=== PATIENT | female | born 1995 | race Caucasian/White ===

== ENCOUNTER 2025-02-07 15:11 | Outpatient (AMB) | payer OTHER, SELFPAY ==
--- NOTE | 2025-02-07 15:17 | MHC.PC.OV ---
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 She has not seen a doctor in many years. She reports concerns of fatigue and hair loss. She reports feeling consistently exhausted and has noticed increased hair shedding for about a year, with the fatigue becoming extreme in the last six months. Reports regular menstrual periods but describes them as very heavy, with heavy bleeding lasting four to five days followed by spotting. Denies constipation, diarrhea, heat or cold intolerance, anxiety or depression, or abnormal weight changes. Denies chest pain, palpitations or shortness of breath. She has no known medical conditions, takes no medications or supplements, and has had no prior surgeries. Her family history is significant for uterine and cervical cancer in her mother, breast cancer in both grandmothers, and skin cancer on her father's side. There is no known family history of hypertension, diabetes, or high cholesterol. 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 Denies smoking or recreational drug use. She consumes alcohol couple times a months about couple drinks per occasion. Declines flu vaccine today. [facility] Social History (System 05/10/24 @ 14:34 by Katey Anderson) Housing: Apartment Patient Tobacco Use Status: Never used Tobacco e-Cigarette/Vaping Use: Never Used service: No Current occupational status: employed Current occupation: [employer] Hearing needs: No Vision needs: Yes (glasses) Questionnaire PHQ-9 Over the last 2 weeks, how often have you been bothered by any of the following problems? 1. Little interest or pleasure in doing things: not at all 2. Feeling down, depressed, or hopeless: several days 3. Trouble falling or staying asleep, or sleeping too much: several days 4. Feeling tired or having little energy: nearly every day 5. Poor appetite or overeating: not at all 6. Feeling bad about yourself - or that you are a failure or have let yourself or your family down: not at all 7. Trouble concentrating on things, such as reading the newspaper or watching television: several days 8. Moving or speaking so slowly that other people could have noticed. Or the opposite - being so fidgety or restless that you have been moving around a lot more than usual: not at all 9. Thoughts that you would be better off or of hurting yourself in some way: not at all Total score: 6 Depression Screening Interpretation: Positive Depression Screening Done: Yes Source: Developed by Drs. Rodrigo Ryan, Frida George, Marcelino Adan and colleagues, with an educational tennille from [employer] Thrive Questionnaire Date Thrive assessed: 02/07/25 I am a: Patient What is your living situation today?: I have a steady place to live Within the past 12 months, did the food you bought not last and you didn't have the money to get more?: Never true Within the past 12 months, did you worry whether your food would run out before you got money to buy more?: Never true Do you have trouble paying for medicines?: No Do you have trouble getting transportation to medical appointments?: No Do you have trouble paying your heating and electricity bill?: No Do you have trouble taking care of your child, family member or friend?: No Do you have trouble with day-to-day activities such as bathing, preparing meals, shopping, managing finances, etc.?: No Are you currently unemployed and looking for a job?: No Are you interested in more education?: Yes Please select the resources that you would like help with: None Currently or been in a relationship where the following occur: No concerns reported THRIVE Score: 0 AUDIT C Alcohol Use Questionnaire (AUDIT-C) 1. How often do you have a drink containing alcohol?: 2-4 times a month 2. How many drinks containing alcohol do you have on a typical day when you are drinking?: 1 or 2 3. How often do you have six or more drinks on one occasion?: Less than monthly Total Score: 3 CRISTI-7 AMB Questionnaire CRISTI-7 Date CRISTI - 7 assessed: 02/07/25 Feeling nervous, anxious, or on edge: 1 = Several days Not being able to stop or control worryin = Not at all Worrying too much about different things: 0 = Not at all Trouble relaxin = Nearly every day Being so restless that it is hard to sit still: 3 = Nearly every day Becoming easily annoyed or irritable: 1 = Several days Feeling afraid as if something awful might happen: 0 = Not at all Total CRISTI-7 score (0-4 normal; 5-9 mild; 10-14 moderate; 15-21 severe): 8 Source: Developed by Drs. Rodrigo Ryan, Frida George, Marcelino Adan and colleagues, with an educational tennille from [employer] Physical exam (Primary Care) Vital Signs: Last Vital Signs Temp 97.7 F 02/07/25 15:20 Pulse 65 02/07/25 15:20 Resp 16 02/07/25 15:20 BP 96/60 02/07/25 15:20 General: Well-appearing, alert, oriented ?3, in no acute distress. Cardiovascular: RRR, S1-S2 appreciated, no murmurs, rubs or gallops. Respiratory: Lungs clear to auscultation bilaterally, no wheezes, rales or rhonchi. Abdomen: Soft, nontender, nondistended. Normoactive bowel sounds. No lower extremity edema. BMI result Body Mass Index 21.9 Tobacco/Smoking Status: Tobacco use Status Tobacco use date assessed 02/07/25 02/07/25 15:26 Patient Tobacco Use Status Never used Tobacco 02/07/25 15:26 e-Cigarette/Vaping Use Never Used 02/07/25 15:26 PHQ-9: PHQ-9 Score PHQ-9: Total score 6 02/07/25 15:26 Depression Screening Interpretation: Positive Thrive Assessment: Date of Thrive Assessment Date Thrive assessed 02/07/25 02/07/25 15:26 Currently or been in a relationship where the following occur: No concerns reported Coding Level of Care Code New Pt Level 4 (59003) Diagnoses Establishing care with new doctor, encounter for Z76.89 Fatigue, unspecified type R53.83 Fatigue type: unspecified Non-scarring hair loss L65.9 Influenza vaccination declined Z28.21 Assessment & Plan Assessment & Plan (1) Establishing care with new doctor, encounter for: Code(s): Z76.89 - Persons encountering health services in other specified circumstances Plan: Patient is a 29-year-old female presenting to establish care. Has not seen a doctor in many years. (2) Fatigue: Code(s): R53.83 - Other fatigue Category: Medical Qualifiers: Fatigue type: unspecified Qualified Code(s): R53.83 - Other fatigue Plan: Patient reports fatigue and progressively worsening hair loss for the past year, worsened over the past 6 months. Reports regular but heavy flow periods for 4-5 days each month. Workup with obtaining CBC, CMP, iron panel, TSH and vitamin-D levels. (3) Non-scarring hair loss: Code(s): L65.9 - Nonscarring hair loss, unspecified Plan: Physical exam notable for diffuse thinning of hair without scars. Obtain blood work as above to evaluate. (4) Influenza vaccination declined: Code(s): Z28.21 - Immunization not carried out because of patient refusal Category: Medical Plan: Declines flu vaccine today. Orders: Orders Complete Blood Count Auto Diff Today Z00.00 - Encounter for general adult medical examination without abnormal findings Comprehensive Met. Panel Today Z00.00 - Encounter for general adult medical examination without abnormal findings Magnesium Today R53.83 - Other fatigue TSH reflex Free T4 Today R53.83 - Other fatigue Lipid Panel with Reflex Today Z13.220 - Encounter for screening for lipoid disorders IRON PROFILE Today R53.83 - Other fatigue Vitamin D 25-OH (D2 and D3) Today R53.83 - Other fatigue Hemoglobin A1c Today Z13.1 - Encounter for screening for diabetes mellitus Vitamin B12 and Folate Today R53.83 - Other fatigue
[2025-02-07 15:20] VITALS: BP 96/60; PULSE 65; RESP 16; TEMP 36.5; BMI 21.9
--- OUTSIDE RECORDS SUMMARY | 2025-02-07 20:13 | XMS_ITS | Encounter Summary ---
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 Maker Machine Name Role Phone Melvi Case MD Primary Care Provider [phone] Encounter Details Date Type Department Care Team (Late st Contact Info) Description 10/08/2016 Conversion Encounter [facility] [place] [address] [place] [address] Social History Tobacco Use Types Packs/Day Years Used Date Smoking Tobacco: Never Assessed Comments Unknown Sex and Gender Information Value Date Recorded Sex Assigned at Not on file Legal Sex Female 4:36 PM EDT Gender Identity Not on file Sexual Orientation Not on file documented as of this encounter Plan of Treatment Not on file documented as of this encounter Visit Diagnoses Not on filedocumented in this encounter Care Teams Slat Basket Maker Machine Relationship Specialty Start Date End Date Melvi Case MD [address] [place] [address] PCP - General 10/02/16 04/22/22 documented as of this encounter
--- OUTSIDE RECORDS SUMMARY | 2025-02-07 20:13 | XMS_ITS | Clinical Summary ---
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 Name Role Phone Unavailable Primary Care Provider Unavailabl e Immunizations Immunization Administration Dates Next Due DTP 01/20/1995, 5,01/13/1994,11/13 DTaP 5 09/04/1998 HPV, Quadrivalent 02/14/2008,10/17/2007,08/15/19 08 Hep B, ped/adol 05/20/1994,1993,1993 Hib (PRP-T) 11/17/1994, 5,01/13/1994,11/13 Influenza, injectable, trivalent 11/08/2008,02/22 Influenza, intranasal, trivalent 11/13/2009 MMR 11/13/1997,11/17/1994 Meningococcal Conj (Menactra) MCV4P 03/04/2006 OPV 09/04/1998, 5,01/13/1994,11/13 Td (adult) (MBL), 2 Lf tetan us toxoid, PF, adsorbed 09/03/2004 Tdap 08/15/2007 Family History Relation Name Status Comments Brother Alive Brother: Alive and well Father Alive Father: Alive a nd well Maternal Grandfather Alive Materna l grandfather: Stroke Mother Alive Mother: Cancer, cervical / Asthma Other Family history of Elevated cholesterol, Family history of Diabetes mellitus, Family history of Strabismus/amblyopia, Family history of Asthma Paternal Grandfather Paterna l grandfather: Diabetes mellitus, Stroke, Social History Tobacco Use Types Packs/Day Years Used Date Smoking Tobacco: Never Assessed Comments Unknown Sex and Gender Information Value Date Recorded Sex Assigned at Not on file Legal Sex Female 4:36 PM EDT Gender Identity Not on file Sexual Orientation Not on file Last Filed Vital Signs Vital Sign Reading Time Taken Comments Blood Pressure 102/64 11/13/2009 12:00 AM EDT Pulse - - Temperature - - Respiratory Rate - - Oxygen Saturation - - Inhaled Oxygen Concentration - - Weight 52.6 kg (116 lb) 11/13/2009 12:00 AM EDT Height 169.7 cm (5' 6.81 ) 11/13/2009 12:00 AM E DT Body Mass Index 18.27 11/13/2009 12:00 AM EDT Plan of Treatment Health Maintenance Due Date Last Done Comments Varicella Vaccines (1 of 2 - 13+ 2-dose series) 12/11/2009 DTaP,Tdap,and Td Vaccines (7 - Td or Tdap) 2017 08/15/2007, 09/03/2004, 09/04/1998, Additional history exists Influenza Vaccines (#1) 2024 11/14/19, 11/08/2008, 03/04/2006 COVID-19 Vaccine (2024- season) 2024 Hepatitis B Vaccines Completed 05/20/1994, 1993, 1993 HIB Vaccines Completed 11/17/1994, 02/23, 01/13/1994, Additional history exists MMR Vaccines Completed 11/13/1997, 11/17/1994 IPV Vaccines Completed 09/04/1998, 02/23, 01/13/1994, Additional history exists Meningococcal Vaccine Aged Out 03/04/2006 No sandra jazmine eligible based on patient's age to complete this topic HPV Vaccines Completed 02/14/2008, 09/23, 08/15/2007 Hepatitis A Vaccines Aged Out No long er eligible based on patient's age to complete this topic Men B Vaccine Aged Out No longer elig ible based on patient's age to complete this topic Pneumococcal Vaccine Aged Out No long er eligible based on patient's age to complete this topic
--- OUTSIDE RECORDS SUMMARY | 2025-02-07 20:13 | XMS_ITS | Clinical Summary ---
Author Organization [facility] Address [address] [place] [address] Care Team Providers Care Industrial Psychology Professor Name Role Phone Unavailable Primary Care Provider Unavailabl e Social History Tobacco Use Types Packs/Day Years Used Date Smoking Tobacco: Never Assessed Comments Unknown Sex and Gender Information Value Date Recorded Sex Assigned at Not on file Legal Sex Female 12:52 PM EST Gender Identity Not on file Sexual Orientation Not on file Plan of Treatment Health Maintenance Due Date Last Done Comments DTaP,Tdap,and Td Vaccines (1 - Tdap) 2012 Hepatitis B Vaccines (1 of 3 - 19+ 3-dose series) 2012 Cervical Cancer Screening: P ap Smear 2014 HPV Vaccines (1 - 3-dose SCD M series) 2020 Depression Screening 02/23/2024 COVID-19 Vaccine (1 - 2024-2 6 season) 2024 Influenza Vaccine (#1) 2024 RSV Immunization Adult Patie nts (1 - 1-dose 75+ series) 2068 HIB Vaccines Aged Out No longer eligi ble based on patient's age to complete this topic Hepatitis A Vaccines Aged Out No long er eligible based on patient's age to complete this topic IPV Vaccines Aged Out No longer eligi ble based on patient's age to complete this topic MMR Vaccines Aged Out No longer eligi ble based on patient's age to complete this topic Meningococcal ACWY Vaccine Aged Out N o longer eligible based on patient's age to complete this topic Meningococcal B Vaccine Aged Out No l onger eligible based on patient's age to complete this topic Pneumococcal Vaccine: Pediat rics (0 to 5 Years) and At-Risk Patients (6 to 49 Years) Aged Out No longer eligible b ased on patient's age to complete this topic RSV Immunization Patients Un booker 20 months Aged Out No longer eligible b ased on patient's age to complete this topic Varicella Vaccines Aged Out No longer eligible based on patient's age to complete this topic
== END 2025-02-07 15:43 | disposition home or self-care (01) ==
LOC: HO.HMCH 15:11
PROVIDERS: PCP Student in an Organized Health Care Education/Training Program; Visit Provider Student in an Organized Health Care Education/Training Program
DX: Z76.89 Persons encountering health services in other specified circumstances (principal); R53.83 Other fatigue; L65.9 Nonscarring hair loss, unspecified; Z28.21 Immunization not carried out because of patient refusal